=== PATIENT | male | born 1985 | race Caucasian/White ===

== ENCOUNTER 2020-06-15 19:14 | Emergency (ER) | payer OTHER ==
[~2020-06-15] VITALS: Ht 180.3 cm; Wt 66.0 kg
[2020-06-15 19:28] VITALS: BP 108/76
== END 2020-06-15 22:31 | disposition home or self-care (01) ==
LOC: ER 19:14
DX: F41.9 Anxiety disorder, unspecified (principal); Z93.0 Tracheostomy status
CPT/HCPCS: 99283